=== PATIENT | female | born 1970 | race Caucasian/White ===

== ENCOUNTER 2017-05-05 13:53 | Emergency (ER) | payer MEDICAID ==
[~2017-05-05] VITALS: Ht 160 cm; Wt 102.6 kg
[2017-05-05 13:57] VITALS: BP 136/85
== END 2017-05-05 14:48 | disposition home or self-care (01) ==
LOC: ED 14:30
DX: G89.11 Acute pain due to trauma (principal); M25.511 Pain in right shoulder; I10 Essential (primary) hypertension; E11.9 Type 2 diabetes mellitus without complications; G43.909 Migraine, unspecified, not intractable, without status migrainosus; Z87.891 Personal history of nicotine dependence
CPT/HCPCS: 99283

== ENCOUNTER 2017-09-30 14:58 | Emergency (ER) | payer MEDICAID ==
[~2017-09-30] VITALS: Ht 160 cm; Wt 119.0 kg
[2017-09-30 15:55] LABS: BASOPHILS # (AUTO) 0.01 x10^3/uL (0-0.1); BASOPHILS % (AUTO) 0 % (0-1); EOSINOPHILS # (AUTO) 0.12 x10^3/uL (0-0.4); EOSINOPHILS % (AUTO) 2 % (1-7); LYMPHOCYTES # (AUTO) 1.18 x10^3/uL (1-3.4); LYMPHOCYTES % (AUTO) 18 % (22-44); MD NO; MEAN CORPUSCULAR HEMOGLOBIN 28.2 pg (27.0-34.8); MEAN CORPUSCULAR HGB CONC 33.5 g/dL (32.4-35.8); MEAN CORPUSCULAR VOLUME 84.2 fL (80-100); MEAN PLATELET VOLUME 8.9 fL (7.4-10.4); MONOCYTES # (AUTO) 0.35 x10^3/uL (0.2-0.8); MONOCYTES % (AUTO) 5 % (2-9); NEUTROPHILS # (AUTO) 4.94 x10^3/uL (1.8-6.8); NEUTROPHILS % (AUTO) 75 % (42-75); PLATELET COUNT 269 x10^3/uL (130-400); RED BLOOD COUNT 4.99 x10^6/uL (3.82-5.3)
[2017-09-30 16:04] LABS: ALBUMIN 3.4 g/dL (3.4-5.0); ANION GAP 4 mmol/L (5-15); CALCIUM 8.8 mg/dL (8.5-10.1); CHLORIDE 106 mmol/L (98-107); CREATININE 0.75 mg/dL (0.55-1.02)
[2017-09-30 16:07] LABS: TROPONIN I < 0.015 ng/mL (0.000-0.045)
[2017-09-30] MEDS ORDERED: KETOROLAC 30 MG/1 ML ONE (17:44)
[2017-09-30] MEDS ORDERED: KETOROLAC 30 MG/1 ML IM ONE (18:00)
[2017-09-30 18:10] VITALS: BP 127/79
== END 2017-09-30 18:12 | disposition home or self-care (01) ==
LOC: ED 18:05
DX: M54.6 Pain in thoracic spine (principal); J15.9 Unspecified bacterial pneumonia; B96.89 Other specified bacterial agents as the cause of diseases classified elsewhere; F31.9 Bipolar disorder, unspecified; G43.909 Migraine, unspecified, not intractable, without status migrainosus; I10 Essential (primary) hypertension
CPT/HCPCS: 36415; 71045; 80048; 82040; 84484; 85025; 93005; 96372; 99285; J1885

== ENCOUNTER 2019-06-02 15:07 | Emergency (ER) | payer MEDICAID ==
[~2019-06-02] VITALS: Ht 160 cm; Wt 73.0 kg
--- NOTE | 2019-06-02 15:43 | NUR ---
PT REPORTS NAUSEA AND ABDOMINAL PAIN X 5 DAYS, PT DESCRIBES PAIN A "KNOT" IN HER EPIGASTRUM. PT DENIES VOMITING. PT AMBULATED TO RESTROOM WITH STEADY GAIT TO PROVIDE UA. BACK TO BED AT THIS TIME ,
[2019-06-02 15:54] LABS: BASOPHILS # (AUTO) 0.01 x10^3/uL (0-0.1); BASOPHILS % (AUTO) 0 % (0-1); EOSINOPHILS # (AUTO) 0.06 x10^3/uL (0-0.4); EOSINOPHILS % (AUTO) 1 % (1-7); LYMPHOCYTES # (AUTO) 1.68 x10^3/uL (1-3.4); LYMPHOCYTES % (AUTO) 25 % (22-44); MD NO; MEAN CORPUSCULAR HEMOGLOBIN 30.5 pg (27.0-34.8); MEAN CORPUSCULAR VOLUME 92.4 fL (80-100); MEAN PLATELET VOLUME 9.4 fL (7.4-10.4); MONOCYTES # (AUTO) 0.11 x10^3/uL (0.2-0.8); MONOCYTES % (AUTO) 2 % (2-9); NEUTROPHILS # (AUTO) 4.83 x10^3/uL (1.8-6.8); NEUTROPHILS % (AUTO) 72 % (42-75); PLATELET COUNT 242 x10^3/uL (130-400); RED BLOOD COUNT 5.04 x10^6/uL (3.82-5.3); RED CELL DISTRIBUTION WIDTH 14.2 % (9.6-15.2)
[2019-06-02 15:58] LABS: CULTURE INDICATED? YES; MICROSCOPIC INDICATED
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
[2019-06-02 16:02] LABS: ALBUMIN 3.8 g/dL (3.4-5.0); ANION GAP 5 mmol/L (5-15); CALCIUM 9.4 mg/dL (8.5-10.1); CHLORIDE 107 mmol/L (98-107); CREATININE 0.79 mg/dL (0.55-1.02)
[2019-06-02 17:39] VITALS: BP 111/86
== END 2019-06-02 17:42 | disposition home or self-care (01) ==
LOC: ED 17:13
DX: N30.00 Acute cystitis without hematuria (principal); G44.321 Chronic post-traumatic headache, intractable; F17.210 Nicotine dependence, cigarettes, uncomplicated; I10 Essential (primary) hypertension
CPT/HCPCS: 36415; 70450; 80048; 81001; 82040; 84703; 85025; 87077; 87086; 87186; 93005; 99284

== ENCOUNTER 2019-08-11 16:49 | Emergency (ER) | payer MEDICAID ==
[~2019-08-11] VITALS: Ht 160 cm; Wt 76.4 kg
[2019-08-11 16:56] VITALS: BP 143/90
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
[2019-08-11] MEDS ORDERED: IBUPROFEN 200 MG TABLET ONE (17:18)
--- NOTE | 2019-08-11 17:20 | NUR ---
pt medicated per orders.
--- NOTE | 2019-08-11 17:21 | NUR ---
PT TO RADIOLOGY.
[2019-08-11] MEDS ORDERED: IBUPROFEN 600 MG TABLET PO ONE (17:30)
--- NOTE | 2019-08-11 17:39 | NUR ---
PT BACK FROM RADIOLOGY.
--- NOTE | 2019-08-11 17:54 | NUR ---
PT AMBULATORY TO RESTROOM FOR URINE SAMPLE WITH STEADY GAIT.
[2019-08-11 18:13] LABS: MICROSCOPIC AUTO
[2019-08-11 18:15] LABS: CULTURE INDICATED? YES
[2019-08-11] MEDS ORDERED: CEFTRIAXONE 1,000 MG ONE (18:26)
[2019-08-11] MEDS ORDERED: CEFTRIAXONE 1,000 MG IM ONE (18:30)
--- NOTE | 2019-08-11 18:35 | NUR ---
PT MEDICATED PER ORDERS.
--- NOTE | 2019-08-11 18:37 | NUR ---
Patient/Caregiver given discharge instructions and they have confirmed that they understand the instructions. Patient ambulatory with steady gait.
== END 2019-08-11 18:40 | disposition home or self-care (01) ==
LOC: ED 18:27
DX: S63.521A Sprain of radiocarpal joint of right wrist, initial encounter (principal); N30.00 Acute cystitis without hematuria; B34.9 Viral infection, unspecified; W01.0XXA Fall on same level from slipping, tripping and stumbling without subsequent striking against object, initial encounter; Y93.89 Activity, other specified; Y92.009 Unspecified place in unspecified non-institutional (private) residence as the place of occurrence of the external cause; Y99.8 Other external cause status
CPT/HCPCS: 29125; 71046; 73110; 81001; 87077; 87086; 87186; 96372; 99284; J0696